=== PATIENT | male | born 1990 | race Caucasian/White ===

== ENCOUNTER 2020-09-16 17:30 | Emergency (ER) | payer SELFPAY ==
[2020-09-16 19:58] LABS: ALT/SGPT 25 U/L (12-78); AST/SGOT 16 U/L (15-37); Albumin 4.4 g/dL (3.4-5.0); Alkaline Phosphatase 71 U/L (45-117); BUN Blood Urea Nitrogen 9 mg/dL (7-18); Bicarbonate 29 mmol/L (21-32); Bilirubin Direct < 0.1 mg/dL (0-0.2); Bilirubin Total 0.4 mg/dL (0.2-1.0); Glucose Level 76 mg/dL (74-106); Magnesium 2.2 mg/dL (1.8-2.4); NT PRO-BNP 30 pg/mL (<125); Potassium 3.5 mmol/L (3.5-5.1); Sodium Level 139 mmol/L (136-145); Troponin (Emerg Dept Use Only) < 0.02 ng/mL (0.0-0.045)
[2020-09-16] MEDS ORDERED: KETOROLAC 30 MG/ML INJ ONE (20:01)
[2020-09-16] MEDS ORDERED: NA CHLORIDE 0.9% 1,000 ML ONE (20:02)
[2020-09-16 20:13] LABS: Urine Blood Negative (Negative); Urine Glucose Negative (Negative); Urine Protein Negative (Negative); Urine Specific Gravity >=1.030 (1.005-1.030)
[2020-09-16 20:14] LABS: Absolute Lymphocytes (CBC) 1.3 K/uL (0.7-4.9); Basophils % 0.5 % (0-1.3); Hematocrit 43.3 % (39.6-49.0); Lymphocytes % 12.7 % (15.3-44.8); RBC Red Blood Cell Count 4.83 M/uL (4.33-5.43)
--- NOTE | 2020-09-16 20:17 | RAD REPORT ---
EXAM DESCRIPTION: RAD - Chest Single View - 09/16/2020 7:11 pm CLINICAL HISTORY: CHEST PAIN COMPARISON: No comparisons FINDINGS: No evidence of edema or pneumonia. The heart size is within normal limits.No acute osseous abnormality. No significant pleural effusions or pneumothorax. IMPRESSION: No acute cardiopulmonary disease.
[2020-09-16 20:37] LABS: Barbiturates NEGATIVE (NEGATIVE); Benzodiazepines NEGATIVE (NEGATIVE); Cocaine NEGATIVE (NEGATIVE); METHAMPHETAM POSITIVE (NEGATIVE); Methadone NEGATIVE (NEGATIVE); Opiates NEGATIVE (NEGATIVE); Phencyclidine NEGATIVE (NEGATIVE); THC Cannibis POSITIVE (NEGATIVE)
--- NOTE | 2020-09-16 21:07 | RAD REPORT ---
EXAM DESCRIPTION: CT - Head Brain Wo Cont - 09/16/2020 8:58 pm CLINICAL HISTORY: CONFUSED COMPARISON: No comparisons TECHNIQUE: All CT scans are performed using dose optimization technique as appropriate and may inclu de automated exposure control or mA/KV adjustment according to patient size. FINDINGS: No intracranial hemorrhage, hydrocephalus or extra-axial fluid collection.No areas of brai n edema or evidence of midline shift. Mucous retention cysts are present in the maxillary sinuses. The calvarium is intact. IMPRESSION: No acute intracranial abnormality.
--- NOTE | 2020-09-18 12:40 | EKG ---
Test Date: 2020-09-16 Test Time: 23:11:30 Trigonometry Teacher: GRISELDA MEASUREMENT RESULTS: Intervals: Rate: 69 MT: 120 QRSD: 90 QT: 400 QTc: 428 [place]: P: 68 MT: 120 QRS: 91 T: 75 INTERPRETIVE STATEMENTS: Normal sinus rhythm with sinus arrhythmia Rightward axis Borderline ECG Compared to ECG 09/16/2020 17:45:04 Right-axis deviation now present Electronically Signed On 09-18-20 12:37:46 CDT by Kash Sheehan
--- NOTE | 2020-09-18 16:58 | EDPHYS ---
Physician Documentation [facility] Name: Jamey Ontiveros Age: 30 yrs Sex: Male : 1990 Arrival Date: 09/16/2020 Time: 17:34 Bed 5 Private MD: ED Physician Babita Gordillo HPI: 09/16 18:35 This 30 yrs old Male presents to ER via Ambulatory with complaints of Chest cp Pain, Altered Mental Status. Historical: - Allergies: 17:41 No Known Allergies; ss - Home Meds: 17:41 None [Active]; ss - PMHx: 17:41 Seizure; ss - PSHx: 17:41 None; ss - Immunization history:: Adult Immunizations unknown. - Social history:: Smoking status: Patient reports the use of cigarette tobacco products, denies chronic smoking, but will smoke occasionally, Patient uses alcohol, but reports only rare drinking. street drugs, Methamphetamine (Meth). ROS: 18:40 Eyes: Negative for injury, pain, redness, and discharge. cp 18:40 Constitutional: Negative for body aches, chills, fever, poor PO intake. 18:40 Cardiovascular: Positive for chest pain, Negative for edema, palpitations. Exam: 17:50 ECG was reviewed by the Attending Physician. cp 18:45 Constitutional: The patient appears in no acute distress, alert, awake, cp non-diaphoretic, non-toxic, well developed, well nourished. 18:45 Head/Face: Normocephalic, atraumatic. cp 18:45 Eyes: Periorbital structures: appear normal, Pupils: equal, round, and reactive to light and accomodation, Extraocular movements: intact throughout, Conjunctiva: normal, no exudate, no injection, Sclera: no appreciated abnormality, Lids and lashes: appear normal, bilaterally. 18:45 ENT: External ear(s): are unremarkable, Nose: is normal, Mouth: Lips: moist, Oral mucosa: moist, Posterior pharynx: Airway: no evidence of obstruction, patent. 18:45 Neck: ROM/movement: is normal, is supple, without pain, no range of motions limitations. 18:45 Chest/axilla: Inspection: normal, Palpation: crepitus, is not appreciated, tenderness, that is mild, of the anterior aspect of left upper chest and mid-sternal area, that partially reproduces the patient's complaints. 18:45 Cardiovascular: Rate: normal, Rhythm: regular, Pulses: Pulses are 2+ in right radial artery and left radial artery. Edema: is not appreciated, JVD: is not appreciated. 18:45 Respiratory: the patient does not display signs of respiratory distress, Respirations: normal, no use of accessory muscles, no retractions, labored breathing, is not present, Breath sounds: are clear throughout, no decreased breath sounds, no stridor, no wheezing. 18:45 Abdomen/GI: Inspection: abdomen appears normal, Palpation: abdomen is soft and non-tender, in all quadrants. 18:45 Back: pain, that is mild, of the left scapular area, ROM is normal. 18:45 Skin: no rash present. 18:45 Neuro: Orientation: to person, place \T\ time. Mentation: is normal, Cerebellar function: is grossly normal, Motor: moves all fours, strength is normal, Sensation: is normal. Vital Signs: 17:40 Resp 17; Weight 67.13 kg; Height 5 ft. 11 in. (180.34 cm); Pain 7/10; ss 17:42 Pulse 95; Pulse Ox 100% on R/A; ss 17:42 Temp 98.6(TE); ss 17:44 BP 119 / 80; ss 20:00 BP 108 / 77; Pulse 64; Resp 17; Pulse Ox 95% on R/A; kg 21:00 BP 121 / 70; Pulse 81; Resp 18; Pulse Ox 100% ; kg 21:30 BP 115 / 77; Pulse 80; Resp 20; Pulse Ox 100% on R/A; kg 22:00 BP 111 / 80; Pulse 71; Resp 20; Pulse Ox 100% ; kg 23:00 BP 123 / 93; Pulse 79; Resp 18; Pulse Ox 100% on R/A; kg 09/17 00:00 BP 119 / 91; Pulse 70; Resp 18; Pulse Ox 100% on R/A; kg 09/16 17:40 Body Mass Index 20.64 (67.13 kg, 180.34 cm) ss MDM: 09/16 18:31 Patient medically screened. cp 23:48 Data reviewed: vital signs, nurses notes, lab test result(s), EKG, radiologic studies, cp plain films. 23:48 Test interpretation: by ED physician or midlevel provider: ECG, plain radiologic cp studies. Counseling: I had a detailed discussion with the patient and/or guardian regarding: the historical points, exam findings, and any diagnostic results supporting the discharge/admit diagnosis, lab results, radiology results, the need for outpatient follow up, a family practitioner, to return to the emergency department if symptoms worsen or persist or if there are any questions or concerns that arise at home. 09/16 18:32 Order name: Basic Metabolic Panel; Complete Time: 20:03 09/16 18:32 Order name: CBC with Diff; Complete Time: 20:36 09/16 18:32 Order name: LFT's; Complete Time: 20:03 09/16 18:32 Order name: Magnesium; Complete Time: 20:03 09/16 18:32 Order name: NT PRO-BNP; Complete Time: 20:03 09/16 18:32 Order name: PT-INR; Complete Time: 20:41 09/16 18:32 Order name: Troponin (emerg Dept Use Only); Complete Time: 20:03 09/16 18:32 Order name: XRAY Chest (1 view); Complete Time: 20:36 09/16 18:32 Order name: UDS; Complete Time: 20:41 09/16 20:13 Order name: Urine Dipstick-Ancillary; Complete Time: 20:36 [facility] 09/16 20:41 Order name: CT Head Brain wo Cont; Complete Time: 21:15 09/16 21:15 Interpretation: Report reviewed. 09/16 21:26 Order name: Troponin I 09/16 21:27 Order name: Troponin I [facility] 09/16 18:20 Order name: EKG; Complete Time: 18:20 09/16 18:20 Order name: EKG - Nurse/Tech; Complete Time: 18:20 09/16 18:32 Order name: Cardiac monitoring 09/16 18:32 Order name: IV Saline Lock 09/16 18:32 Order name: Labs collected and sent 09/16 18:32 Order name: O2 Per Protocol 09/16 18:32 Order name: O2 Sat Monitoring EC:50 Rate is 81 beats/min. Rhythm is regular. MT interval is normal. QRS interval is normal. cp QT interval is normal. T waves are Inverted in leads aVL, aVR. Interpreted by me. Reviewed by me. Administered Medications: 19:54 Drug: NS 0.9% 1000 ml Route: IV; Rate: 1 bolus; Site: left antecubital; kg 22:00 Follow up: IV Status: Completed infusion; IV Intake: 1000ml kg 19:54 Drug: Ketorolac 15 mg Route: IVP; Site: left antecubital; kg 09/17 00:23 Follow up: Response: No adverse reaction; No change in condition kg Disposition Summary: 09/16/20 23:48 Discharge Ordered Location: Home cp Problem: new cp Symptoms: have improved cp Condition: Stable cp Diagnosis - Chest pain, unspecified cp - Adverse effect of amphetamines cp Followup: cp - With: Private Physician - When: 2 - 3 days - Reason: Recheck today's complaints Discharge Instructions: - Discharge Summary Sheet cp - Nonspecific Chest Pain, Adult cp - Methamphetamines Use Disorder cp - Aspirin and Your Heart cp Forms: - Medication Reconciliation Form cp - Thank You Letter cp - Antibiotic Education cp - Prescription Opioid Use cp Signatures: Dispatcher [employer] EDMS Deja Rodgers RN RN Willem Vazquez PA PA cp Heather Villanueva, RN RN kg Corrections: (The following items were deleted from the chart) 04:09/16 18:30 Constitutional: Negative for body aches, chills, fever, poor PO intake, cp cp 09/17 04:09/16 18:30 Cardiovascular: Positive for chest pain, Negative for edema, palpitations, cp cp 09/17 04:09/16 18:30 Eyes: Negative for injury, pain, redness, and discharge, cp cp
--- NOTE | 2020-09-18 16:58 | ER ---
Nurse's Notes [facility] Name: Jamey Ontiveros Age: 30 yrs Sex: Male : 1990 Arrival Date: 09/16/2020 Time: 17:34 Bed 5 Private MD: Diagnosis: Chest pain, unspecified;Adverse effect of amphetamines Presentation: 09/16 17:40 Chief complaint: Patient states: Intermittent CP that began 1 week ago. Pt reports that ss today at times he feels disoriented. Coronavirus screen: Client denies travel out of the [place] in the last 14 days. Ebola Screen: Patient denies exposure to infectious person. Patient denies travel to an Ebola-affected area in the 21 days before illness onset. Initial Sepsis Screen: Does the patient have a suspected source of infection? No. Patient's initial sepsis screen is negative. Risk Assessment: Do you want to hurt yourself or someone else? Patient reports no desire to harm self or others. Onset of symptoms was September 09, 2020. 17:40 Method Of Arrival: Ambulatory ss 17:40 Acuity: HOPE 3 ss 17:43 Initial Sepsis Screen: Does the patient meet any 2 criteria? No. Patient's initial ss sepsis screen is negative. Note Pt reports that he uses Methamphetamine. Last use was two days ago. Triage Assessment: 20:00 General: Appears unkempt, Behavior is calm, cooperative, appropriate for age, quiet. kg Pain: Complains of pain in anterior aspect of left upper chest and left breast Pain currently is 7 out of 10 on a pain scale. at worst was 8 out of 10 on a pain scale. level that patient reports is acceptable is 5 out of 10 on a pain scale. Quality of pain is described as burning, aching, sharp, numb. Neuro: Reports numbness. Neuro: Reports Ear ringing. Cardiovascular: Reports chest pain, nausea. Cardiovascular: Heart tones S1 S2 Capillary refill < 3 seconds Chest pain. Respiratory: Airway is patent Breath sounds are clear bilaterally. GI: No deficits noted. : No deficits noted. Historical: - Allergies: 17:41 No Known Allergies; ss - Home Meds: 17:41 None [Active]; ss - PMHx: 17:41 Seizure; ss - PSHx: 17:41 None; ss - Immunization history:: Adult Immunizations unknown. - Social history:: Smoking status: Patient reports the use of cigarette tobacco products, denies chronic smoking, but will smoke occasionally, Patient uses alcohol, but reports only rare drinking. street drugs, Methamphetamine (Meth). Screenin:00 Abuse screen: Denies threats or abuse. Denies injuries from another. Nutritional kg screening: No deficits noted. Tuberculosis screening: No symptoms or risk factors identified. Fall Risk None identified. Assessment: 09/17 00:05 Reassessment: Pt called nurse into the room and stated that he fells better and his kg ride is here and would like to leave. Pt signed AMA paperwork, IV's removed and patient walked out. . Vital Signs: 09/16 17:40 Resp 17; Weight 67.13 kg; Height 5 ft. 11 in. (180.34 cm); Pain 7/10; ss 17:42 Pulse 95; Pulse Ox 100% on R/A; ss 17:42 Temp 98.6(TE); ss 17:44 BP 119 / 80; ss 20:00 BP 108 / 77; Pulse 64; Resp 17; Pulse Ox 95% on R/A; kg 21:00 BP 121 / 70; Pulse 81; Resp 18; Pulse Ox 100% ; kg 21:30 BP 115 / 77; Pulse 80; Resp 20; Pulse Ox 100% on R/A; kg 22:00 BP 111 / 80; Pulse 71; Resp 20; Pulse Ox 100% ; kg 23:00 BP 123 / 93; Pulse 79; Resp 18; Pulse Ox 100% on R/A; kg 09/17 00:00 BP 119 / 91; Pulse 70; Resp 18; Pulse Ox 100% on R/A; kg 09/16 17:40 Body Mass Index 20.64 (67.13 kg, 180.34 cm) ED Course: 09/16 17:34 Patient arrived in ED. am2 17:41 Triage completed. ss 17:41 Arm band placed on right wrist. ss 18:26 Willem Vazquez PA is PHCP. cp 18:26 Babita Gordillo MD is Attending Physician. cp 18:59 Heather Villanueva, BEATRIZ is Primary Nurse. kg 19:10 XRAY Chest (1 view) In Process Unspecified. EDMS 19:55 Inserted saline lock: 22 gauge in left antecubital area, using aseptic technique. kg 20:00 Patient has correct armband on for positive identification. school lunch monitor on. Pulse kg ox on. NIBP on. 20:00 Inserted saline lock: 20 gauge in right antecubital area, using aseptic technique. kg 20:58 CT Head Brain wo Cont In Process Unspecified. EDMS Administered Medications: 19:54 Drug: NS 0.9% 1000 ml Route: IV; Rate: 1 bolus; Site: left antecubital; kg 22:00 Follow up: IV Status: Completed infusion; IV Intake: 1000ml kg 19:54 Drug: Ketorolac 15 mg Route: IVP; Site: left antecubital; kg 09/17 00:23 Follow up: Response: No adverse reaction; No change in condition kg Intake: 09/16 22:00 IV: 1000ml; Total: 1000ml. kg Outcome: 23:48 Discharge ordered by MD. winkler 09/17 00:24 Patient left the ED. kg Signatures: Dispatcher [employer] EDMS Deja Rodgers RN RN ss Willem Vazquez PA PA Angela Hidalgo Kristen, RN RN kg
[2020-09-19 01:38] VITALS: TEMP 98.6
[2020-09-19 01:47] VITALS: O2SAT 100
[2020-09-19 01:54] VITALS: BP 119/91
== END 2020-09-17 00:24 | disposition home or self-care (01) ==
LOC: ER 17:30
DX: R07.9 Chest pain, unspecified (principal); T43.625A Adverse effect of amphetamines, initial encounter; F17.210 Nicotine dependence, cigarettes, uncomplicated
CPT/HCPCS: 36415; 70450; 71045; 80048; 80076; 80307; 81003; 83735; 83880; 84484; 85025; 85610; 93005; 96361; 96374; 99284; J7030